=== PATIENT | female | born 1995 | race Caucasian/White ===

== ENCOUNTER 2019-03-05 21:25 | Emergency (ER) | payer MEDICAID ==
[~2019-03-05] VITALS: Ht 162.6 cm; Wt 106.0 kg
[~2019-03-05 21:25] MED LIST: ACET-2778 PO; ALBU18HF2 INH; ALBU8.5H8 IH; FLUT16SP20 BOTHNARES; GUAI120015 PO; IBUP-1986 PO; NO HOME MEDS
[2019-03-05 22:04] LABS: BASOPHILS % (AUTO) 0.3 % (0-1); EOSINOPHILS # (AUTO) 0.2 X10'3 (0-0.9); EOSINOPHILS % (AUTO) 1.7 % (0-6); HEMATOCRIT 39.4 % (35.0-45.0); HEMOGLOBIN 13.5 g/dl (12.0-16.0); LYMPHOCYTES # (AUTO) 2.7 X10'3 (1.1-4.8); LYMPHOCYTES % (AUTO) 18.8 % (21-51); MEAN CORPUSCULAR HEMOGLOBIN 31.7 PG (27.0-31.0); MEAN CORPUSCULAR HGB CONC 34.2 g/dL (33.0-36.5); MEAN CORPUSCULAR VOLUME 92.5 FL (78-98); MEAN PLATELET VOLUME 7.6 FL (7.4-10.4); MONOCYTES # (AUTO) 0.8 X10'3 (0-0.9); MONOCYTES % (AUTO) 5.6 % (2-12); NEUTROPHILS # (AUTO) 10.4 X10'3 (1.8-7.7); NEUTROPHILS % (AUTO) 73.6 % (42-75); PLATELET COUNT 265 X10'3 (140-440); RED BLOOD COUNT 4.26 X10'6 (4.20-5.60); RED CELL DISTRIBUTION WIDTH 13.2 % (11.5-14.5); WHITE BLOOD COUNT 14.2 X10'3 (4.5-11.0)
[2019-03-05 22:14] LABS: ALANINE AMINOTRANSFERASE 26 U/L (12-78); ALBUMIN 3.3 G/DL (3.4-5.0); ALBUMIN/GLOBULIN RATIO 0.8 (1.1-1.5); ALKALINE PHOSPHATASE 77 IU/L (46-116); ANION GAP 11 (8-16); ASPARTATE AMINO TRANSFERASE 13 U/L (10-37); BILIRUBIN,TOTAL 0.3 MG/DL (0.1-1.0); BLOOD UREA NITROGEN 12 MG/DL (7-18); BUN/CREATININE RATIO 13.8 (6.6-38.0); CALCIUM 8.9 MG/DL (8.5-10.1); CHLORIDE 103 MMOL/L (99-107); CREATININE 0.87 MG/DL (0.40-0.90); GLUCOSE 121 MG/DL (70-104); LIPASE 192 U/L (73-393); POTASSIUM 3.3 MMOL/L (3.5-5.1); SODIUM 139 MMOL/L (135-145); TOTAL CARBON DIOXIDE 24.9 MMOL/L (24-32); TOTAL PROTEIN 7.7 G/DL (6.4-8.2); eGFR 79 ML/MIN
[2019-03-05 23:10] VITALS: BP 126/82
== END 2019-03-06 00:37 | disposition left against medical advice (07) ==
LOC: ER 21:25
DX: R10.84 Generalized abdominal pain (principal); R19.7 Diarrhea, unspecified; Z90.49 Acquired absence of other specified parts of digestive tract; Z79.899 Other long term (current) drug therapy; Z53.21 Procedure and treatment not carried out due to patient leaving prior to being seen by health care provider
CPT/HCPCS: 36415; 80053; 83690; 85025; 85610

== ENCOUNTER 2020-04-04 19:03 | Emergency (ER) | payer MEDICAID ==
[~2020-04-04] VITALS: Ht 160 cm; Wt 72.7 kg
[2020-04-04 19:41] VITALS: BP 118/77
== END 2020-04-04 19:52 | disposition home or self-care (01) ==
LOC: ER 19:03
DX: M79.672 Pain in left foot (principal); M79.671 Pain in right foot; F10.10 Alcohol abuse, uncomplicated; F15.90 Other stimulant use, unspecified, uncomplicated; Z90.49 Acquired absence of other specified parts of digestive tract; Z98.890 Other specified postprocedural states; Z79.899 Other long term (current) drug therapy
CPT/HCPCS: 99281

== ENCOUNTER 2020-04-08 03:58 | Emergency (ER) | payer MEDICAID ==
[~2020-04-08] VITALS: Ht 160 cm; Wt 75.0 kg
--- NOTE | 2020-04-08 04:12 | NUR ---
brought back to room 4 and she lays on the bed with her eyes closed like she is going to fall asleep. EKG ordered.
[2020-04-08 04:46] VITALS: BP 113/84
== END 2020-04-08 04:47 | disposition home or self-care (01) ==
LOC: ER 03:58
DX: F15.90 Other stimulant use, unspecified, uncomplicated (principal); I10 Essential (primary) hypertension; F10.10 Alcohol abuse, uncomplicated; Z90.49 Acquired absence of other specified parts of digestive tract; Z98.890 Other specified postprocedural states; Z79.899 Other long term (current) drug therapy; Y90.9 Presence of alcohol in blood, level not specified
CPT/HCPCS: 93005; 99283

== ENCOUNTER 2020-05-31 04:36 | Emergency (ER) | payer MEDICAID ==
[~2020-05-31] VITALS: Ht 162.6 cm; Wt 81.8 kg
[2020-05-31] MEDS ORDERED: ondansetron/PF 4mg/2ml inj IV ONE (04:55)
[2020-05-31] MEDS ORDERED: normal saline 1000ML IV soln IVB ONE (04:55)
[2020-05-31 05:15] LABS: BASOPHILS # (AUTO) 0.1 X10'3 (0-0.2); BASOPHILS % (AUTO) 0.6 % (0-1); EOSINOPHILS # (AUTO) 0.1 X10'3 (0-0.9); EOSINOPHILS % (AUTO) 1.3 % (0-6); HEMATOCRIT 36.4 % (35.0-45.0); HEMOGLOBIN 12.3 g/dl (12.0-16.0); LYMPHOCYTES # (AUTO) 2.9 X10'3 (1.1-4.8); LYMPHOCYTES % (AUTO) 29.2 % (21-51); MEAN CORPUSCULAR HEMOGLOBIN 32.9 PG (27.0-31.0); MEAN CORPUSCULAR HGB CONC 33.9 g/dL (33.0-36.5); MEAN CORPUSCULAR VOLUME 97.1 FL (78-98); MEAN PLATELET VOLUME 7.5 FL (7.4-10.4); MONOCYTES # (AUTO) 0.7 X10'3 (0-0.9); MONOCYTES % (AUTO) 7.2 % (2-12); NEUTROPHILS # (AUTO) 6.1 X10'3 (1.8-7.7); NEUTROPHILS % (AUTO) 61.7 % (42-75); PLATELET COUNT 246 X10'3 (140-440); RED BLOOD COUNT 3.74 X10'6 (4.20-5.60); RED CELL DISTRIBUTION WIDTH 13.1 % (11.5-14.5); WHITE BLOOD COUNT 9.9 X10'3 (4.5-11.0)
[2020-05-31 05:37] LABS: HCG SERUM QL NEGATIVE
[2020-05-31 05:44] LABS: ALANINE AMINOTRANSFERASE 17 U/L (12-78); ALBUMIN 3.3 G/DL (3.4-5.0); ALBUMIN/GLOBULIN RATIO 0.9 (1.1-1.5); ALKALINE PHOSPHATASE 65 IU/L (46-116); ANION GAP 10 (8-16); ASPARTATE AMINO TRANSFERASE 9 U/L (10-37); BILIRUBIN,TOTAL 0.4 MG/DL (0.1-1.0); BLOOD UREA NITROGEN 7 MG/DL (7-18); BUN/CREATININE RATIO 10.8 (6.6-38.0); CALCIUM 9.3 MG/DL (8.5-10.1); CHLORIDE 106 MMOL/L (99-107); CREATININE 0.65 MG/DL (0.40-0.90); GLUCOSE 88 MG/DL (70-104); LIPASE 139 U/L (73-393); POTASSIUM 3.2 MMOL/L (3.5-5.1); SODIUM 144 MMOL/L (135-145); TOTAL CARBON DIOXIDE 28.1 MMOL/L (24-32); TOTAL PROTEIN 6.9 G/DL (6.4-8.2); eGFR > 90 ML/MIN
[2020-05-31] MEDS: morphine 4 MG/ML inj SYRINge IV PRN ×2 (05:56→10:25)
[2020-05-31] MEDS ORDERED: LIDOcaine 1% 30ml preserv. free vial SQ STA (06:48)
[2020-05-31 10:03] LABS: CLARITY,URINE CLOUDY (Clear); COLOR,URINE YELLOW (Yellow); GLUCOSE, URINE NEGATIVE (Neg); KETONES,URINE NEGATIVE (Neg); LEUKOCYTE ESTERASE ,URINE MODERATE (Neg); NITRITES, URINE NEGATIVE (Neg); OCCULT BLOOD,URINE MODERATE (Neg); PROTEIN,URINE NEGATIVE (Neg); UROBILINOGEN,URINE 0.2 E.U/dL (0.2-1.0)
[2020-05-31 10:06] LABS: UA COLLECTION TYPE VOIDED
[2020-05-31 10:08] LABS: URINE AMPHETAMINE SCREEN POSITIVE (Neg); URINE BARBITUATE SCREEN NEGATIVE (Neg); URINE BENZODIAZEPINES SCREEN NEGATIVE (Neg); URINE CANNABINOID SCREEN POSITIVE (Neg); URINE COCAINE SCREEN NEGATIVE (Neg); URINE METHADONE SCREEN NEGATIVE (Neg); URINE OPIATE SCREEN POSITIVE (Neg); URINE PHENCYCLIDINE SCREEN NEGATIVE (Neg)
[2020-05-31 10:10] LABS: MUCUS STRANDS FEW /LPF (Neg)
[2020-05-31 10:11] LABS: SQUAMOUS EPITHELIAL CELL,UR MODERATE /LPF (FEW)
[2020-05-31 10:12] LABS: TRANSITIONAL EPI CELLS,URINE FEW /HPF
[2020-05-31] MEDS ORDERED: ONDA4TAB6 PO (10:13)
[2020-05-31] MEDS ORDERED: CEPH-572 PO (10:13)
[2020-05-31 10:14] LABS: AMORPHOUS PHOSPHATES 1+; BACTERIA,URINE FEW /HPF (Neg)
[2020-05-31] MEDS ORDERED: CefTRIAXone 2gm/D5W 50ml BAG 50 ML IV ONE (10:15)
[2020-05-31 10:19] LABS: TRICHOMONAS,URINE FEW /HPF (NEGATIVE)
--- NOTE | 2020-05-31 10:23 | NUR ---
Patient is screaming profanities and throwing objects in her room. Entered patient's room and asked her to please stop. She continues.
[2020-05-31] MEDS ORDERED: morphine 2 MG/ML inj. syringe IV ONE (10:30)
[2020-05-31] MEDS ORDERED: normal saline 1000ml 1,000 ML IV ONE (10:30)
[2020-05-31] MEDS ORDERED: metoclopramide 5 mg/ml inj IV ONE (10:30)
--- NOTE | 2020-05-31 10:38 | NUR ---
Patient given medication and now resting
[2020-05-31] MEDS ORDERED: haloperidol lactate 5mg/ml inj IM ONE (10:45)
[2020-05-31] MEDS ORDERED: magnesium 2GM in 50ml NS 50 ML IV ONE (10:45)
--- NOTE | 2020-05-31 11:31 | NUR ---
Patient is sleeping supine and in no distress.
--- NOTE | 2020-05-31 13:02 | NUR ---
Patient continues to sleep.
[2020-05-31 14:55] VITALS: BP 106/72
== END 2020-05-31 15:13 | disposition home or self-care (01) ==
LOC: ER 04:36
DX: N12 Tubulo-interstitial nephritis, not specified as acute or chronic (principal); F15.90 Other stimulant use, unspecified, uncomplicated; R10.31 Right lower quadrant pain; R11.0 Nausea; I10 Essential (primary) hypertension; Z90.49 Acquired absence of other specified parts of digestive tract; Z72.89 Other problems related to lifestyle; Z79.2 Long term (current) use of antibiotics; Z79.899 Other long term (current) drug therapy
CPT/HCPCS: 20552; 36415; 74176; 80053; 80305; 81001; 83690; 84703; 85025; 87088; 96361; 96365; 96366; 96367; 96372; 96375; 96376; 99285; J0696; J1630; J2001; J2270; J2405; J2765; J3475; J7030

== ENCOUNTER 2020-05-31 16:10 | Emergency (ER) | payer MEDICAID ==
[~2020-05-31] VITALS: Ht 160 cm; Wt 81.0 kg
[~2020-05-31 16:10] MED LIST changes: +CEPH-572 PO; +ONDA4TAB6 PO
[2020-05-31 16:16] VITALS: BP 113/59
== END 2020-05-31 16:28 | disposition home or self-care (01) ==
LOC: ER 16:10
DX: N39.0 Urinary tract infection, site not specified (principal); R10.31 Right lower quadrant pain; I10 Essential (primary) hypertension; F15.90 Other stimulant use, unspecified, uncomplicated; Z90.49 Acquired absence of other specified parts of digestive tract; Z72.89 Other problems related to lifestyle; Z98.890 Other specified postprocedural states; Z79.2 Long term (current) use of antibiotics; Z79.899 Other long term (current) drug therapy
CPT/HCPCS: 99283

== ENCOUNTER 2020-10-07 00:21 | Emergency (ER) | payer MEDICAID ==
[~2020-10-07] VITALS: Ht 162.6 cm; Wt 82.1 kg
[~2020-10-07 00:21] MED LIST changes: -CEPH-572 PO
[2020-10-07] MEDS ORDERED: acetaminophen 325mg tablet PO ONE (02:05)
[2020-10-07] MEDS ORDERED: ibuprofen tablet 400 MG TABLET PO ONE (02:05)
[2020-10-07] MEDS ORDERED: ACET-1025 PO (02:28)
[2020-10-07] MEDS ORDERED: IBUP-1984 PO (02:28)
[2020-10-07 02:36] VITALS: BP 117/79
== END 2020-10-07 02:38 | disposition home or self-care (01) ==
LOC: ER 00:22
DX: R07.89 Other chest pain (principal); I10 Essential (primary) hypertension; F17.200 Nicotine dependence, unspecified, uncomplicated; F15.90 Other stimulant use, unspecified, uncomplicated; Z90.49 Acquired absence of other specified parts of digestive tract; Z72.89 Other problems related to lifestyle; Z79.899 Other long term (current) drug therapy
CPT/HCPCS: 71045; 93005; 99284

== ENCOUNTER 2021-01-06 03:43 | Emergency (ER) | payer MEDICAID ==
[~2021-01-06] VITALS: Ht 162.6 cm; Wt 80.0 kg
[2021-01-06 03:46] VITALS: BP 135/80
[2021-01-06] MEDS ORDERED: VALA10002 PO (06:52)
[2021-01-06] MEDS ORDERED: acetaminophen 325mg tablet PO ONE (07:00)
== END 2021-01-06 07:22 | disposition home or self-care (01) ==
LOC: ER 03:44
DX: A60.04 Herpesviral vulvovaginitis (principal); F17.210 Nicotine dependence, cigarettes, uncomplicated; I10 Essential (primary) hypertension; F15.10 Other stimulant abuse, uncomplicated; Z79.899 Other long term (current) drug therapy
CPT/HCPCS: 36415; 86592; 87491; 99284

== ENCOUNTER 2021-02-19 16:24 | Emergency (ER) | payer MEDICAID ==
[~2021-02-19] VITALS: Ht 162.6 cm; Wt 86.8 kg
[~2021-02-19 16:24] MED LIST changes: +VALA10002 PO
[2021-02-19 17:07] LABS: BASOPHILS % (AUTO) 0.4 % (0-1); EOSINOPHILS # (AUTO) 0.1 X10'3 (0-0.9); HEMATOCRIT 39.5 % (35.0-45.0); HEMOGLOBIN 13.4 g/dl (12.0-16.0); LYMPHOCYTES # (AUTO) 2.5 X10'3 (1.1-4.8); LYMPHOCYTES % (AUTO) 32.5 % (21-51); MEAN CORPUSCULAR HGB CONC 33.9 g/dL (33.0-36.5); MEAN CORPUSCULAR VOLUME 94.5 FL (78-98); MEAN PLATELET VOLUME 7.5 FL (7.4-10.4); MONOCYTES # (AUTO) 0.5 X10'3 (0-0.9); MONOCYTES % (AUTO) 7.1 % (2-12); NEUTROPHILS # (AUTO) 4.5 X10'3 (1.8-7.7); PLATELET COUNT 259 X10'3 (140-440); RED BLOOD COUNT 4.18 X10'6 (4.20-5.60); RED CELL DISTRIBUTION WIDTH 12.7 % (11.5-14.5); WHITE BLOOD COUNT 7.7 X10'3 (4.5-11.0)
[2021-02-19 17:22] LABS: ALANINE AMINOTRANSFERASE 22 U/L (12-78); ALBUMIN 3.9 G/DL (3.4-5.0); ALBUMIN/GLOBULIN RATIO 1.1 (1.1-1.5); ALKALINE PHOSPHATASE 62 IU/L (46-116); ANION GAP 11 (8-16); ASPARTATE AMINO TRANSFERASE 14 U/L (10-37); BILIRUBIN,TOTAL 0.8 MG/DL (0.1-1.0); BLOOD UREA NITROGEN 16 MG/DL (7-18); CALCIUM 8.5 MG/DL (8.5-10.1); CHLORIDE 105 MMOL/L (99-107); CREATININE 0.94 MG/DL (0.40-0.90); GLUCOSE 143 MG/DL (70-104); POTASSIUM 3.1 MMOL/L (3.5-5.1); SODIUM 141 MMOL/L (135-145); TOTAL PROTEIN 7.6 G/DL (6.4-8.2); eGFR 71 ML/MIN
[2021-02-19 17:29] LABS: ETHANOL < 0.010 GM/DL (0.0-0.010)
[2021-02-19] MEDS ORDERED: NO HOME MEDS (19:54)
--- NOTE | 2021-02-19 19:54 | NUR ---
The patient moved to bed 23 in the overflow. She was cooperative with the move and verbalized understanding of plan of care. The patient denies being on any psychiatric medications. She stated that she has never been in a psychiatric facility. She reports one prior suicide attempt in nursing home. She is on probation for an arson charge. She is homeless in [place] for the past 5 years. She has been staying at the [facility] and is currently on her 30 day out period. She uses methamphetamine and stated last use was yesterday. She did give a urine specimen for a tox. She reports command AH to strangle herself. She reports mental illness in her uncle and her brother but was unsure of the diagnosis but believed it to be either schizophrenia or bipolar. She states that she feels sad and alone and has been estranged from all of her family. She reports anxiety.
[2021-02-19 20:07] LABS: CLARITY,URINE CLOUDY (Clear); GLUCOSE, URINE NEGATIVE (Neg); KETONES,URINE NEGATIVE (Neg); LEUKOCYTE ESTERASE ,URINE SMALL (Neg); NITRITES, URINE NEGATIVE (Neg); OCCULT BLOOD,URINE TRACE-INTACT (Neg); PH,URINE 5.5 (4.8-8.0); PROTEIN,URINE TRACE mg/dl (Neg)
[2021-02-19 20:08] LABS: URINE HCG NEGATIVE (NEG)
[2021-02-19 20:12] LABS: COLOR,URINE DARK YELLOW (Yellow); UA COLLECTION TYPE CLN CATCH MIDSTREAM
[2021-02-19 20:14] LABS: BACTERIA,URINE 3+ /HPF (Neg); CAL OXALATE CRYSTALS 1+ /HPF (NEGATIVE); MUCUS STRANDS MANY /LPF (Neg); RBC,URINE 0-2 /HPF (0-2); SQUAMOUS EPITHELIAL CELL,UR MANY /LPF (FEW); TRICHOMONAS,URINE FEW /HPF (NEGATIVE)
[2021-02-19 20:20] LABS: URINE AMPHETAMINE SCREEN POSITIVE (Neg); URINE BARBITUATE SCREEN NEGATIVE (Neg); URINE BENZODIAZEPINES SCREEN NEGATIVE (Neg); URINE CANNABINOID SCREEN POSITIVE (Neg); URINE COCAINE SCREEN NEGATIVE (Neg); URINE METHADONE SCREEN NEGATIVE (Neg); URINE OPIATE SCREEN NEGATIVE (Neg); URINE PHENCYCLIDINE SCREEN NEGATIVE (Neg)
--- NOTE | 2021-02-19 21:06 | NUR ---
The patient appears to be sleeping
[2021-02-19] MEDS ORDERED: cephalexin 250mg capsule PO ONE (21:18)
--- NOTE | 2021-02-19 21:28 | NUR ---
Packet sent to [facility]
[2021-02-19] MEDS: cephalexin 500mg capsule PO SCH (21:33)
--- NOTE | 2021-02-19 22:31 | NUR ---
The patient appears to be sleeping
--- NOTE | 2021-02-20 00:03 | NUR ---
The patient appears to be sleeping
--- NOTE | 2021-02-20 01:44 | NUR ---
The patient appears to be sleeping
[2021-02-20] MEDS ORDERED: potassium Cl 20 mEq SR tablet PO STA (04:13)
--- NOTE | 2021-02-20 04:33 | NUR ---
The patient is awake. Juice and ice given. She had a covid screen done and was given Kdur 40meq
[2021-02-20 05:52] VITALS: BP 103/68
--- NOTE | 2021-02-20 08:50 | NUR ---
[facility] WORKER UZMA SPEAKING WITH PT AT BEDSIDE
[2021-02-20] MEDS: cephalexin 500mg capsule PO SCH (08:55)
--- NOTE | 2021-02-20 09:18 | NUR ---
PT EVALUATED BY [facility] WORKER MAURY GUSMAN DOES NOT MEET CRITERIA FOR HOLD. PT IS TO BE DC'D AND TAXIED TO [facility] ON [address].
== END 2021-02-20 09:39 | disposition home or self-care (01) ==
LOC: ER 16:25
DX: R45.851 Suicidal ideations (principal); Z20.822 Contact with and (suspected) exposure to COVID-19; I10 Essential (primary) hypertension; F15.90 Other stimulant use, unspecified, uncomplicated; Z90.49 Acquired absence of other specified parts of digestive tract; Z98.890 Other specified postprocedural states; Z72.89 Other problems related to lifestyle; Z59.0 Homelessness
CPT/HCPCS: 36415; 80053; 80305; 80320; 81001; 81025; 84443; 85025; 87635; 99285; C9803

== ENCOUNTER 2021-03-23 05:45 | Emergency (ER) | payer MEDICAID ==
[~2021-03-23] VITALS: Ht 162.6 cm; Wt 84.5 kg
[~2021-03-23 05:45] MED LIST changes: -ACET-2778 PO; -ALBU18HF2 INH; -ALBU8.5H8 IH; -FLUT16SP20 BOTHNARES; -GUAI120015 PO; -IBUP-1986 PO; -ONDA4TAB6 PO; -VALA10002 PO
[2021-03-23 06:29] LABS: BASOPHILS % (AUTO) 0.4 % (0-1); EOSINOPHILS # (AUTO) 0.2 X10'3 (0-0.9); EOSINOPHILS % (AUTO) 2.7 % (0-6); HEMATOCRIT 40.8 % (35.0-45.0); LYMPHOCYTES # (AUTO) 3.4 X10'3 (1.1-4.8); LYMPHOCYTES % (AUTO) 46.8 % (21-51); MEAN CORPUSCULAR HEMOGLOBIN 32.4 PG (27.0-31.0); MEAN CORPUSCULAR HGB CONC 34.3 g/dL (33.0-36.5); MEAN CORPUSCULAR VOLUME 94.5 FL (78-98); MONOCYTES # (AUTO) 0.5 X10'3 (0-0.9); MONOCYTES % (AUTO) 6.5 % (2-12); NEUTROPHILS # (AUTO) 3.1 X10'3 (1.8-7.7); NEUTROPHILS % (AUTO) 43.6 % (42-75); PLATELET COUNT 253 X10'3 (140-440); RED BLOOD COUNT 4.32 X10'6 (4.20-5.60); RED CELL DISTRIBUTION WIDTH 13.5 % (11.5-14.5); WHITE BLOOD COUNT 7.2 X10'3 (4.5-11.0)
[2021-03-23 06:31] LABS: URINE HCG NEGATIVE (NEG)
[2021-03-23 06:38] LABS: CLARITY,URINE CLOUDY (Clear); COLOR,URINE YELLOW (Yellow); GLUCOSE, URINE NEGATIVE (Neg); KETONES,URINE NEGATIVE (Neg); LEUKOCYTE ESTERASE ,URINE SMALL (Neg); NITRITES, URINE NEGATIVE (Neg); OCCULT BLOOD,URINE SMALL (Neg); PH,URINE 6.5 (4.8-8.0); PROTEIN,URINE NEGATIVE (Neg)
[2021-03-23 06:39] LABS: URINE AMPHETAMINE SCREEN POSITIVE (Neg); URINE BARBITUATE SCREEN NEGATIVE (Neg); URINE BENZODIAZEPINES SCREEN NEGATIVE (Neg); URINE CANNABINOID SCREEN POSITIVE (Neg); URINE COCAINE SCREEN NEGATIVE (Neg); URINE METHADONE SCREEN NEGATIVE (Neg); URINE OPIATE SCREEN NEGATIVE (Neg); URINE PHENCYCLIDINE SCREEN NEGATIVE (Neg)
[2021-03-23 06:43] LABS: UA COLLECTION TYPE CLN CATCH MIDSTREAM
[2021-03-23 06:47] LABS: SQUAMOUS EPITHELIAL CELL,UR MANY /LPF (FEW)
[2021-03-23 06:48] LABS: ALANINE AMINOTRANSFERASE 31 U/L (12-78); ALBUMIN 3.7 G/DL (3.4-5.0); ALBUMIN/GLOBULIN RATIO 1.2 (1.1-1.5); ALKALINE PHOSPHATASE 66 IU/L (46-116); ANION GAP 10 (8-16); ASPARTATE AMINO TRANSFERASE 19 U/L (10-37); BILIRUBIN,TOTAL 0.3 MG/DL (0.1-1.0); BLOOD UREA NITROGEN 7 MG/DL (7-18); CALCIUM 8.1 MG/DL (8.5-10.1); CHLORIDE 108 MMOL/L (99-107); CREATININE 0.78 MG/DL (0.40-0.90); ETHANOL < 0.010 GM/DL (0.0-0.010); GLUCOSE 89 MG/DL (70-104); POTASSIUM 3.1 MMOL/L (3.5-5.1); SODIUM 143 MMOL/L (135-145); TOTAL CARBON DIOXIDE 25.3 MMOL/L (24-32); TOTAL PROTEIN 6.8 G/DL (6.4-8.2); eGFR 88 ML/MIN
[2021-03-23 06:48] LABS: MUCUS STRANDS MANY /LPF (Neg); WBC CLUMPS,URINE MODERATE /HPF (NEGATIVE)
[2021-03-23 06:52] LABS: TRICHOMONAS,URINE FEW /HPF (NEGATIVE)
[2021-03-23 06:55] LABS: BACTERIA,URINE FEW /HPF (Neg); WBC,URINE 20-30 /HPF (0-4)
[2021-03-23 07:00] VITALS: BP 129/74
--- NOTE | 2021-03-23 07:01 | NUR ---
PT SLEEPING QUIETLY AT THIS TIME.
[2021-03-23] MEDS ORDERED: cephalexin 250mg capsule PO ONE (07:35)
[2021-03-23] MEDS ORDERED: metroNIDAZOLE 500mg tablet PO ONE (07:35)
--- NOTE | 2021-03-23 10:00 | NUR ---
I WANT TO HIDE IN A PARMAR, NOBODY TO TALK TO. BORED. "I JUST WANT TO ", "TRIED TO CUT MYSELF BUT DIDNT WORK, I HAVE NO BLOOD"
--- NOTE | 2021-03-23 13:50 | NUR ---
PT C/O LOW BACK PAIN, SPOKE WITH DR. LANDEROS, PLEASE SEE NEW ORDERS.
[2021-03-23] MEDS ORDERED: ibuprofen tablet 400 MG TABLET PO ONE (14:00)
[2021-03-23] MEDS ORDERED: ibuprofen 200mg tablet PO ONE (14:05)
--- NOTE | 2021-03-23 14:07 | NUR ---
PT BROUGHT OVER AND PLACED IN BED 23. CHANGED INTO GREEN SCRUBS. BELONGINGS PUT IN BAG
[2021-03-23] MEDS ORDERED: NITR100C6 PO (17:19)
== END 2021-03-23 17:49 ==
LOC: ER 05:46
DX: R45.851 Suicidal ideations (principal); A59.9 Trichomoniasis, unspecified; N39.0 Urinary tract infection, site not specified; I10 Essential (primary) hypertension; F32.9 Major depressive disorder, single episode, unspecified; F15.10 Other stimulant abuse, uncomplicated; Z59.0 Homelessness
CPT/HCPCS: 36415; 80053; 80305; 80320; 81001; 81025; 85025; 99285; J3490

== ENCOUNTER 2021-03-26 07:46 | Emergency (ER) | payer MEDICAID ==
[~2021-03-26] VITALS: Ht 162.6 cm; Wt 86.4 kg
[~2021-03-26 07:46] MED LIST changes: +NITR100C6 PO
[2021-03-26] MEDS ORDERED: LORazepam 1 MG tablet PO ONE (08:05)
[2021-03-26] MEDS ORDERED: OLANZapine 2.5MG tablet PO STA (08:07)
[2021-03-26] MEDS ORDERED: OLAN5TAB3 PO (08:18)
[2021-03-26 08:46] VITALS: BP 120/78
== END 2021-03-26 09:34 | disposition home or self-care (01) ==
LOC: ER 07:47
DX: F41.9 Anxiety disorder, unspecified (principal); I10 Essential (primary) hypertension; F32.9 Major depressive disorder, single episode, unspecified; F12.10 Cannabis abuse, uncomplicated; Z56.0 Unemployment, unspecified
CPT/HCPCS: 99283

== ENCOUNTER → 2021-04-05 | Emergency (ER) | payer MEDICAID ==
[~2021-04-05] MED LIST changes: +OLAN5TAB3 PO
== END | disposition left against medical advice (07) ==
LOC: ER 18:10
DX: F41.9 Anxiety disorder, unspecified (principal); Z53.21 Procedure and treatment not carried out due to patient leaving prior to being seen by health care provider

== ENCOUNTER 2021-04-06 04:54 | Emergency (ER) | payer MEDICAID ==
[~2021-04-06] VITALS: Ht 162.6 cm; Wt 90.9 kg
[2021-04-06 04:59] VITALS: BP 147/88
[2021-04-06] MEDS ORDERED: CefTRIAXone 250MG IM Kit w/LIDOcaine IM STA (05:42)
[2021-04-06] MEDS ORDERED: PENICILLIN G BENZATHINE 2,400,000 UNIT/4 ML SYRINGE IM STA (05:42)
[2021-04-06] MEDS ORDERED: azithromycin 250mg tablet PO ONE (05:45)
[2021-04-06 06:48] LABS: HCG SERUM QL NEGATIVE
== END 2021-04-06 07:06 | disposition home or self-care (01) ==
LOC: ER 04:55
DX: A64 Unspecified sexually transmitted disease (principal); F15.10 Other stimulant abuse, uncomplicated; I10 Essential (primary) hypertension; F32.9 Major depressive disorder, single episode, unspecified; Z90.49 Acquired absence of other specified parts of digestive tract; F10.10 Alcohol abuse, uncomplicated; Z59.0 Homelessness; Z79.899 Other long term (current) drug therapy; Z98.890 Other specified postprocedural states; Y90.9 Presence of alcohol in blood, level not specified
CPT/HCPCS: 36415; 84703; 86592; 87491; 87591; 96372; 99284; J0561; J0696